=== PATIENT | female | born 1960 | race Caucasian/White ===

== ENCOUNTER 2022-04-16 20:56 | Emergency (ER) | payer BC ==
[2022-04-16] MEDS ORDERED: Methocarbamol 500 MG TAB ONE (21:16)
[2022-04-16] MEDS ORDERED: Lidocaine 5% Patch TD SCH (21:45)
[2022-04-16] MEDS ORDERED: HYDROcodone/Acetaminophen 5/325 mg Tablet ONE (21:59)
[2022-04-17] MEDS ORDERED: Transdermal Patch Removal TOP SCH (10:00)
== END 2022-04-16 22:04 | disposition home or self-care (01) ==
LOC: BURERS 20:56
DX: S22.31XA Fracture of one rib, right side, initial encounter for closed fracture (principal); S23.41XA Sprain of ribs, initial encounter; S29.011A Strain of muscle and tendon of front wall of thorax, initial encounter; S30.1XXA Contusion of abdominal wall, initial encounter; W18.09XA Striking against other object with subsequent fall, initial encounter; Y92.009 Unspecified place in unspecified non-institutional (private) residence as the place of occurrence of the external cause; Z85.3 Personal history of malignant neoplasm of breast
CPT/HCPCS: 71046